=== PATIENT | male | born 1980 | race African-American/Black ===

== ENCOUNTER 2021-03-09 10:29 | Emergency (ER) | payer OTHER ==
[~2021-03-09] VITALS: Ht 172.7 cm; Wt 77.1 kg
[2021-03-09 10:37] VITALS: TEMP 98
[2021-03-09 11:48] LABS: PLATELET COUNT 282 K/uL (142-355)
[2021-03-09 11:54] LABS: POTASSIUM 3.4 mmol/L (3.6-5.2); SODIUM 141 mmol/L (136-145)
[2021-03-09 12:05] LABS: PARTIAL THROMBOPLASTIN TIME 27.4 SECONDS (24.5-33.6)
[2021-03-09 12:22] VITALS: BP 130/76
== END 2021-03-09 13:29 | disposition home or self-care (01) ==
LOC: ED 10:29
PROVIDERS: Hospitalist
DX: R07.89 Other chest pain (principal); R09.1 Pleurisy; Z86.16 Personal history of COVID-19
CPT/HCPCS: 36415; 80053; 82550; 83880; 84484; 85027; 85379; 85610; 85730; 93005; 96374; 96375; 99284; J1100; J1885